=== PATIENT | female | born 1980 | race Caucasian/White ===

== ENCOUNTER 2020-02-02 17:19 | Emergency (ER) | payer OTHER, SELFPAY ==
[2020-02-02 17:36] VITALS: BP 125/97; PULSE 114; RESP 20; TEMP 37.5; O2SAT 100
--- NOTE | 2020-02-02 18:15 | ED.ABDPAIN ---
HPI - Abdominal Pain General Chief Complaint: Abdominal Pain Stated Complaint: abdominal pain Source: patient Mode of arrival: ambulatory Limitations: no limitations History of Present Illness HPI narrative: Patient presents for evaluation of abdominal pain and distention since last evening around 1999. She indicates she has a history of anxiety, bipolar disorder, inflammatory bowel disease(although she states she was never definitively diagnosed with Crohn's or ulcerative colitis). She underwent a partial colectomy in 2011 following a prolapsed rectum, and also underwent gastric sleeve surgery at [facility] in [place] in 2016. She is under the care of install technician, Dr. Pitts, but has not been evaluated by him in approximately 2 years. She is unsure of the date of her last colonoscopy. She states that last evening she was feeling nauseous but did not vomit. She indicates she has not been passing any gas, which is concerning. She states she feels like there is a tight band of nails around the abdomen circumferentially. She states her last bowel movement was yesterday and she has had daily bowel movements the last 2 weeks which is atypical for her. She typically has a bowel movement every 3 to 4 days. She denies any fever, chills, vaginal bleeding or discharge. She states she has undergone uterine ablation and essure placement in the past. . She reports high stress levels related to ongoing behavioral problems of her daughter and some stress in her marriage. Related Data Home Medications Medication Instructions Recorded Confirmed Linzess 02/02/20 Protonix 02/02/20 Trulance 02/02/20 diphenhydramine HCl [Unisom 50 mg PO HS 02/02/20 02/02/20 SleepGels] duloxetine 60 mg PO BID 02/02/20 02/02/20 gabapentin 1,200 mg PO HS 02/02/20 02/02/20 gabapentin 500 mg PO TID 02/02/20 02/02/20 lurasidone [Latuda] 100 mg PO DAILY 02/02/20 02/02/20 temazepam 15 mg PO HS 02/02/20 02/02/20 Allergies Allergy/AdvReac Type Severity Reaction Status Date / Time erythromycin base Allergy Vomiting Verified 02/02/20 18:04 Penicillins Allergy Rash Verified 02/02/20 18:04 Review of Systems Review of Systems: Narrative: CONSTITUTIONAL: Denies fever, chills, or sweats. EYES: Denies visual changes, redness, or discharge. ENT: Denies rhinorrhea, congestion, sore throat, or otalgia. CARDIOVASCULAR: Denies chest pain, palpitations, or edema. RESPIRATORY: Denies cough or dyspnea. GASTROINTESTINAL: Reports abdominal pain and recent nausea without vomiting. Reports inability to pass gas GENITOURINARY: Denies dysuria or hematuria. SKIN: Denies rash or itching. MUSCULOSKELETAL: Denies back pain, joint pain, or myalgia. NEUROLOGIC: Denies headache, numbness, dizziness, or weakness. PSYCHIATRIC: Denies anxiety or depression. [facility] Past Medical History Medical History (Updated 02/02/20 @ 18:29 by Brian Pedersen, ADMINISTRATION MANAGER, ) Anxiety Bipolar disorder Inflammatory bowel disease Insomnia Surgical History Surgical History H/O breast augmentation History of bariatric surgery History of partial colectomy Family History Family History (Updated 02/02/20 @ 18:24 by Brian Pedersen, [facility], ) Mother Medical history non-contributory Social History Social History Smoking status: Never smoker Alcohol intake: never Substance use: former Substance use type: marijuana Other substance usage details: Medical marijuana Living arrangements: with family Gender identity (if verbalized by the patient): Female Sexual Orientation (if Verbalized by the Patient): Straight or Heterosexual Exam Narrative: Exam Narrative: GENERAL: Well-appearing, well-nourished HEAD: Normocephalic, atraumatic. EYES: PERRLA and EOMI. ENT: Nares clear, no rhinorrhea or epistaxis. Mucous membranes moist. Oropharynx withou
== END 2020-02-02 18:20 | disposition short-term general hospital (02) ==
LOC: EXPTROY 17:30
PROVIDERS: Emergency Provider Nurse Practitioner; PCP Family Medicine
DX: R10.9 Unspecified abdominal pain (principal); F41.9 Anxiety disorder, unspecified; F31.9 Bipolar disorder, unspecified
CPT/HCPCS: 99202; G0463

== ENCOUNTER 2020-02-02 18:36 | Inpatient (IN) | payer OTHER, SELFPAY ==
--- NOTE | ~2020-02-02 | US_ITS ---
US right upper quadrant INDICATION: Cholecystitis. PROCEDURE: Realtime right upper abdominal ultrasound. COMPARISON: CT dated 02/02/2020 FINDINGS: The pancreas is normal without focal mass or pancreatic ductal dilation. Liver echotexture is normal without focal mass or intrahepatic biliary dilatation. There is normal directional flow i n the portal vein. Gallbladder is distended with stones, gallbladder wall thickening and pericholecystic fluid. There is mild intrahepatic biliary dilatation. Common bile duct measures 7 mm. Positive sonographic Redman' s sign. IMPRESSION: 1: Gallstones with gallbladder wall thickening and trace pericholecystic fluid. Positive sonographic Erdman's sign with mild intrahepatic biliary dilatation. Findings compatible with acute cholecystitis . Clinically correlate. Reviewed, dictated and finalized at location A. TICAL NURSE CLINICAL COORDINATOR IMPRESSION: 1: Gallstones with gallbladder wall thickening and trace pericholecystic fluid. Positive sonographic Redman's sign with mild intrahepatic biliary dilatation. Findings compatible with acute cholecystitis. Clinically correlate.
--- NOTE | ~2020-02-02 | CT_ITS ---
EXAMINATION: CT abdomen pelvis wo con DATE: 02/02/2020 19:33 INDICATION: Abdominal pain TECHNIQUE: Computed tomography (CT) of the abdomen and pelvis was performed without intravenous contr ast. The dose-length product (DLP) was 432.95 mGy-cm. Automated exposure control and iterative recons truction technique were employed. COMPARISON: None FINDINGS: The lung bases are clear. The heart size is normal. Bilateral breast implants are noted. Maher rgical changes in the stomach likely reflect gastric bypass. The liver, spleen, pancreas, and adrenal glands are normal. There is mild gallbladder distention with wall thickening and pericholecystic inf lammatory change. No pathologically enlarged abdominal or pelvic lymph nodes are identified. There is no free intraperitoneal gas or evidence of bowel obstruction. The appendix is normal. A large volume of colonic stool is present. There are tubal occlusion devices in the fallopian tubes. There is a fa t-containing umbilical hernia. Mild lumbar spondylosis is noted. IMPRESSION: 1. CT findings suggestive of acute cholecystitis. Reviewed, dictated and finalized at location A. TAL PRODUCT MANAGER
[2020-02-02 18:37] VITALS: BP 145/97; PULSE 100; RESP 20; TEMP 36.7; O2SAT 100
[2020-02-02 18:58] LABS: Basophils Absolute Auto 0.1 K/mm3 (0.0-0.1); Basophils Percent Auto 0.8 % (0.2-1.2); Eosinophils Absolute Auto 0.2 K/mm3 (0-0.3); Eosinophils Percent Auto 1.7 % (0-4.4); Hematocrit 41.3 % (37.0-47.0); Hemoglobin 13.3 g/dL (12.0-15.0); Immature Granulocyte Absolute 0.08 K/mm3 (0.00-0.031); Immature Granulocyte Percent A 0.6 % (0-0.5); Lymphocytes Absolute Auto 2.04 K/mm3 (0.9-3.2); Lymphocytes Percent Auto 14.2 % (18.3-44.2); Mean Corpuscular HGB Conc 32.2 g/dl (32-36); Mean Corpuscular Hemoglobin 31.1 pg (26-34); Mean Corpuscular Volume 96.7 fl (80-100); Mean Platelet Volume 10.1 fl (7.4-10.4); Monocytes Absolute Auto 0.8 K/mm3 (0.1-0.6); Monocytes Percent Auto 5.8 % (2.6-8.5); Neutrophils Absolute Auto 11.1 K/mm3 (1.3-6.7); Neutrophils Percent Auto 76.9 % (45.5-73.1); Platelet Count Result 240 k/mm3 (150-375); Red Blood Count 4.27 M/mm3 (4.2-5.4); Red Cell Distribution Width 13.4 % (11.5-14.5); White Blood Count 14.4 K/mm3 (4.5-10.0)
[2020-02-02 19:04] LABS: Add Urine Microscopic? YES; Appearance Urine Clear (Clear); Bacteria Urine Trace /hpf; Bilirubin Urine Negative (Negative); Blood Urine Negative (Negative); Color Urine Yellow (Yellow); Glucose Urine UA Negative (Negative); Ketones Urine Negative (Negative); Leukocyte Esterase Ur Trace LEU/UL (Negative); Mucus Urine Rare /lpf; Nitrate Urine Negative (Negative); Protein Urine 1+ mg/dL (Negative); RBC Urine 0-2 /hpf (0-2); Specific Grav Ur 1.017 (1.001-1.035); Squamous Epithelial Cell Urine Few /hpf (Few); Urobilinogen Urine Negative mg/dL (<2.0)
[2020-02-02 19:10] LABS: Alanine Aminotransferase 18 U/L (4-35); Albumin Level 4.1 g/dL (3.5-5.1); Alkaline Phosphatase 60 U/L (38-126); Anion Gap 8 mmol/L (8-16); Aspartate Amino Transferase 23 U/L (14-36); Bilirubin,Total 0.4 mg/dL (0.2-1.3); Blood Urea Nitrogen 11 mg/dL (7-17); Calcium 8.6 mg/dL (8.4-10.2); Carbon Dioxide 32 mmol/L (22-30); Chloride 97 mmol/L (98-107); Estimated CRCL calculation 89 ml/min; Estimated Glomerular Filt Rate > 60; Glucose 138 mg/dL (65-105); Lipase 85 U/L (23-300); Potassium 3.3 mmol/L (3.4-5.0); Sodium 137 mmol/L (137-145)
--- NOTE | 2020-02-02 19:17 | ED.ABDPAIN ---
HPI - Abdominal Pain General Chief Complaint: Abdominal Pain Stated Complaint: ABD PAIN Time Seen by Provider: 02/02/20 18:58 Source: patient Mode of arrival: ambulatory Limitations: no limitations History of Present Illness HPI narrative: 39-year-old female She has a history of a gastric sleeve procedure several years ago and had a what sounds like sigmoid resection several years before that for some type of rectal prolapse. In addition she is treated for irritable bowel with a couple different medications that she takes as needed Complains of waking up at about 2:00 in the morning with severe upper abdominal pain and abdominal distention and being pretty unconsolable until about 5 AM when it decreased enough for her to be able to go back to sleep However later on the morning the pain again worsened although she does not feel like she is as bloated anymore and she developed a fine erythematous rash on her trunk This prompted her to go to an urgent care where she was seen and they thought it would be a good idea to come here She is nauseated but has not vomited she has no diarrhea in fact she has not been able to pass a stool even after taking her Linzess which usually causes that she has no fever No hematuria or dysuria but reports decreased urine output Related Data Home Medications Medication Instructions Recorded Confirmed Linzess 1 caplet PO DAILY PRN 02/02/20 02/02/20 Protonix 40 mg PO BID 02/02/20 02/02/20 Trulance 200 mg PO Q12H 02/02/20 02/02/20 diphenhydramine HCl [Unisom 50 mg PO HS 02/02/20 02/02/20 SleepGels] duloxetine 60 mg PO BID 02/02/20 02/02/20 gabapentin 1,200 mg PO HS 02/02/20 02/02/20 gabapentin 600 mg PO TID 02/02/20 02/02/20 lurasidone [Latuda] 100 mg PO HS 02/02/20 02/02/20 temazepam 15 mg PO HS 02/02/20 02/02/20 Allergies Allergy/AdvReac Type Severity Reaction Status Date / Time erythromycin base Allergy Vomiting Verified 02/02/20 18:52 Penicillins Allergy Rash Verified 02/02/20 18:52 Review of Systems Review of Systems: All systems reviewed & are unremarkable except as noted in HPI and below Constitutional: Constitutional: Denies chills and Denies fever(s) Cardiovascular: Cardiovascular: Denies chest pain Respiratory: Respiratory: Denies cough and Denies dyspnea Gastrointestinal: Gastrointestinal: Reports no additional gastrointestinal complaints, Reports abdominal pain, Reports bloating, Reports constipation and Reports nausea Musculoskeletal: Musculoskeletal: Reports myalgias Integumentary/Breasts: Skin/Breast: Reports rash PMFSH Past Medical History Medical History (Updated 02/02/20 @ 23:11 by Te Casey MD) Anxiety Bipolar disorder Inflammatory bowel disease Insomnia Surgical History Surgical History H/O breast augmentation History of bariatric surgery History of partial colectomy Family History Family History (Updated 02/02/20 @ 21:41 by Lois Doyle RN) Mother Medical history non-contributory Father Acute myocardial infarction Hypertension Social History Social History Smoking status: Never smoker Alcohol intake: never Substance use: unknown Substance use type: marijuana Other substance usage details: Medical marijuana Gender identity (if verbalized by the patient): Female Spiritual care concerns: No Exam Const: General: alert Nutritional Appearance: well nourished Orientation/consciousness: patient oriented x3 Other: Anxious, tearful HENMT: Head: normal to inspection Eyes: Conjunctivae: conjunctivae normal EOM: EOMs intact bilaterally Chest: Other: Faint rash Resp: Effort & Inspection: normal respiratory effort Auscultation: clear to auscultation bilaterally Cardio: Rate: regular rate Rhythm: regular rhythm Heart sounds: no murmurs GI: GI Palp: Yes Tenderness to palpation present (G
[2020-02-02] MEDS: DICYCLOMINE HCL INJ 20 MG/2 ML VIAL IM (19:25)
[2020-02-02] MEDS: ONDANSETRON INJ 4 MG/2 ML VIAL IV PUSH (19:26)
[2020-02-02] MEDS: LACTATED RINGERS 1,000 ML 999 ML IV CONT (19:26)
[2020-02-02] MEDS: fentaNYL CITRATE INJ (*CRX) 100 MCG/2 ML VIAL 50 MCG IV PUSH ×2 (19:26→20:45)
[2020-02-02] MEDS: FAMOTIDINE 20 MG/2 ML VIAL IV PUSH (21:32)
[2020-02-02 21:39] VITALS: BP 141/87; PULSE 97; RESP 20; TEMP 36.7; O2SAT 100; BMI 25.2
--- NOTE | 2020-02-02 21:39 | ADMGEN ---
This patient, Sandra Ravi, was admitted to Medical Room 252-. Patient/family oriented to hospital policies and general routines including ID bracelet, bed and alarms, visiting hours, pain management, procedures, bathroom and other care routines, personal items, smoking policy, room service/diet, and visiting hours. Information on how to activate the Rapid Response Team has been discussed. Patient/Family are encouraged to report perceived risks to care and to ask questions if they do not understand what they are told or what they should do.
[2020-02-02] MEDS: metroNIDAZOLE 500 MG/ISO 100ML 500 MG/100 ML BAG 100 MG IVPB (22:01)
[2020-02-02] MEDS: LACTATED RINGERS 1,000 ML 125 ML IV CONT (22:01)
[2020-02-02] MEDS: HYDROmorphone HCL INJ (*CRX) 1 MG/ML SYR IV PUSH (22:33)
[2020-02-02] MEDS: lamoTRIgine 100 MG TABLET 200 MG PO (23:33)
[2020-02-02] MEDS: diphenhydrAMINE HCl CAP 25 MG CAPSULE 50 MG PO (23:34)
[2020-02-02] MEDS: GABAPENTIN 400 MG CAPSULE 1200 MG PO (23:35)
[2020-02-02] MEDS: PANTOPRAZOLE 40 MG TABLET PO (23:35)
[2020-02-03] VITALS (12 sets, daily range): BP systolic 103–131; BP diastolic 66–83; PULSE 91–118; RESP 12–20; TEMP 35.9–37.2; O2SAT 93–100
[2020-02-03] MEDS: HYDROmorphone HCL INJ (*CRX) 1 MG/ML SYR 0.5 MG IV PUSH (00:44)
[2020-02-03] MEDS: HYDROmorphone HCL INJ (*CRX) 1 MG/ML SYR IV PUSH ×6 (02:47→13:50)
[2020-02-03 05:43] LABS: Basophils Percent Auto 0.4 % (0.2-1.2); Eosinophils Absolute Auto 0.1 K/mm3 (0-0.3); Eosinophils Percent Auto 0.8 % (0-4.4); Hematocrit 38.1 % (37.0-47.0); Hemoglobin 12.2 g/dL (12.0-15.0); Immature Granulocyte Absolute 0.03 K/mm3 (0.00-0.031); Immature Granulocyte Percent A 0.3 % (0-0.5); Lymphocytes Absolute Auto 1.01 K/mm3 (0.9-3.2); Lymphocytes Percent Auto 11.4 % (18.3-44.2); Mean Corpuscular Hemoglobin 30.3 pg (26-34); Mean Corpuscular Volume 94.8 fl (80-100); Mean Platelet Volume 10.2 fl (7.4-10.4); Monocytes Absolute Auto 0.7 K/mm3 (0.1-0.6); Monocytes Percent Auto 8.3 % (2.6-8.5); Neutrophils Percent Auto 78.8 % (45.5-73.1); Platelet Count Result 200 k/mm3 (150-375); Red Blood Count 4.02 M/mm3 (4.2-5.4); Red Cell Distribution Width 13.2 % (11.5-14.5); White Blood Count 8.9 K/mm3 (4.5-10.0)
[2020-02-03 05:54] LABS: Lipase 56 U/L (23-300)
[2020-02-03] MEDS: metroNIDAZOLE 500 MG/ISO 100ML 500 MG/100 ML BAG 100 MG IVPB ×3 (06:05→20:46)
[2020-02-03] MEDS: LACTATED RINGERS 1,000 ML 125 ML IV CONT (06:06)
[2020-02-03] MEDS: GABAPENTIN 300 MG CAPSULE 600 MG PO ×2 (09:28→13:44)
[2020-02-03] MEDS: lamoTRIgine 100 MG TABLET 200 MG PO ×2 (09:28→20:49)
[2020-02-03] MEDS: DULoxetine HCL 60 MG CAPSULE.DR PO ×2 (09:28→20:46)
[2020-02-03] MEDS: PANTOPRAZOLE 40 MG TABLET PO ×2 (09:29→20:46)
[2020-02-03] MEDS: FAMOTIDINE 20 MG/2 ML VIAL IV PUSH ×2 (09:29→15:16)
[2020-02-03] MEDS: ONDANSETRON INJ 4 MG/2 ML VIAL IV PUSH ×2 (09:35→23:54)
--- NOTE | 2020-02-03 10:01 | PM.IMHP ---
H&P: HPI History of Present Illness Date/Time: 02/03/20 09:20 Chief complaint: acute cholecystitis Narrative: Sandra Ravi is a 39 year old female with a history of bipolar depression, anxiety, migraines, and reported inflammatory bowel disease. She presented to the emergency department yesterday with complaints of upper abdominal pain, bloating, and nausea. The patient reports a sudden onset of right-sided abdominal pain Monday night around 9:00 p.m.. She reportedly ate a homemade taco for dinner that night prior to the onset of pain. She reports the abdominal pain was sharp and intense. She also complains of associated bloating and nausea, but no vomiting. The pain continued through the night and improved slightly the next morning. The pain again worsened into Monday and started radiating around her upper abdomen and into her mid back. No alleviating factors. Denies fever or chills. She presented to [facility] urgent [facility] for the abdominal pain and was ultimately sent to the ER for further evaluation. CT scan of the abdomen and pelvis suggests acute cholecystitis. No cholelithiasis noted. Labs revealed white blood cell count 14,400, normal lipase, and normal LFTs. Our service was consulted by the ED physician and the patient was admitted to our service. She was started on IV broad-spectrum antibiotics, IV fluids, analgesics, and made NPO. The patient is now seen on the medical floor. She is still having a significant amount of abdominal pain requiring IV analgesics. She is rating her abdominal pain at a 10/10 in the right upper quadrant currently. Mild nausea, but still no vomiting. Still complaining of bloating. No other complaints at this time. Review of Systems Constitutional: Constitutional: Reports as per HPI, Denies chills, Denies excessive sweating, Denies fatigue, Denies fever(s), Denies headache(s) and Denies weakness Eyes: Eyes: Denies change in vision and Denies loss of vision ENT: Reports Normal hearing present, Denies dizziness and Denies headache(s) Cardiovascular: Cardiovascular: Denies chest pain, Denies syncope, Denies leg edema, Denies lightheadedness, Denies radiating jaw, neck or arm pain and Denies dyspnea Respiratory: Respiratory: Denies cough, Denies dyspnea and Denies wheezing Gastrointestinal: Gastrointestinal: Reports as per HPI, Reports abdominal pain, Denies melena, Reports bloating, Denies hematochezia, Denies change in stool character, Denies constipation, Denies GI cramping, Denies diarrhea, Reports nausea and Denies vomiting Genitourinary: Genitourinary: Reports no additional female genitourinary complaints, Denies nocturia, Denies dysuria and Denies urinary urgency Musculoskeletal: Musculoskeletal: Denies deformity, Denies joint swelling, Denies radiating pain into limb and Denies tingling Integumentary/Breasts: Skin/Breast: Denies pruritus, Denies wounds and Denies jaundice Neurologic: Reports Normal hearing present, Denies confusion, Denies dizziness, Denies syncope, Denies headache(s), Denies loss of vision, Denies tingling, Denies tremor(s) and Denies weakness Psychiatric: Psychiatric: Reports anxiety, Denies confusion, Reports depression, Denies homicidal ideation and Denies suicidal ideation Endocrine: Endocrine: Denies cold intolerance, Denies excessive sweating, Denies fatigue and Denies heat intolerance PMFSH Past Medical History Medical History Anxiety Bipolar disorder Inflammatory bowel disease Reported IBD but no confirmed diagnosis of Crohn's or UC. Insomnia Surgical History Surgical History H/O breast augmentation History of bariatric surgery Gastric sleeve History of partial colectomy Family History Family History Mother Medical history non-contributory Gallbladder disease Father Acute myocardial
--- NOTE | 2020-02-03 12:56 | PHAR ---
HOME MEDS VERIFIED = [facility] [id number] LURASIDONE 80 MG DAILY & [facility] [id number] LATUDA 20 MG 1 TAB DAILY.
[2020-02-03] MEDS: LACTATED RINGERS 1,000 ML 30 ML IV CONT ×2 (14:41→17:02)
--- NOTE | 2020-02-03 15:07 | WPDANESEPPF ---
Anes - Initial Pre Proc Eval Procedure: Operation Date: 02/03/20 15:30 Proposed Procedures p Laparoscopic Cholecystectomy - Nathan Hood DO Date/Time: 02/03/20 15:07 Surgeon: Nathan Hood DO Pre Op Diagnosis: acute cholecystitis Patient Data Age: 39 Gender: F Height: 1.7 m Weight: 73.2 kg Last Vital Signs Temp 37.1 C 02/03/20 14:30 Pulse 107 H 02/03/20 14:30 Resp 14 02/03/20 14:30 BP 122/80 02/03/20 14:30 Pulse Ox 94 02/03/20 14:30 Allergies Allergy/AdvReac Type Severity Reaction Status Date / Time erythromycin base Allergy Vomiting Verified 02/02/20 18:52 Penicillins Allergy Rash Verified 02/02/20 18:52 Home Medications Medication Instructions Recorded Confirmed Type Linzess 1 caplet PO DAILY PRN 02/02/20 02/02/20 History Protonix 40 mg PO BID 02/02/20 02/02/20 History Trulance 200 mg PO Q12H 02/02/20 02/02/20 History diphenhydramine HCl [Unisom 50 mg PO HS 02/02/20 02/02/20 History SleepGels] duloxetine 60 mg PO BID 02/02/20 02/02/20 History gabapentin 1,200 mg PO HS 02/02/20 02/02/20 History gabapentin 600 mg PO TID 02/02/20 02/02/20 History lurasidone [Latuda] 100 mg PO HS 02/02/20 02/02/20 History temazepam 15 mg PO HS 02/02/20 02/02/20 History Laboratory Tests 02/02/20 02/02/20 02/02/20 18:52 18:52 18:52 WBC 14.4 K/mm3 H K/mm3 (4.5-10.0) RBC 4.27 M/mm3 M/mm3 (4.2-5.4) Hgb 13.3 g/dL g/dL (12.0-15.0) Hct 41.3 % % (37.0-47.0) MCV 96.7 fl fl (80-100) MCH 31.1 pg pg (26-34) MCHC 32.2 g/dl g/dl (32-36) RDW 13.4 % % (11.5-14.5) Plt Count 240 k/mm3 k/mm3 (150-375) MPV 10.1 fl fl (7.4-10.4) Immature Gran % (Auto) 0.6 % H % (0-0.5) Neut % (Auto) 76.9 % H % (45.5-73.1) Lymph % (Auto) 14.2 % L % (18.3-44.2) [place] % (Auto) 5.8 % % (2.6-8.5) Eos % (Auto) 1.7 % % (0-4.4) Baso % (Auto) 0.8 % % (0.2-1.2) Lymph # (Auto) 2.04 K/mm3 K/mm3 (0.9-3.2) [place] # (Auto) 0.8 K/mm3 H K/mm3 (0.1-0.6) Eos # (Auto) 0.2 K/mm3 K/mm3 (0-0.3) Baso # (Auto) 0.1 K/mm3 K/mm3 (0.0-0.1) Abs Immat Gran (auto) 0.08 K/mm3 H K/mm3 (0.00-0.031) Absolute Neuts (auto) 11.1 K/mm3 H K/mm3 (1.3-6.7) Absolute Nucleated RBC 0.0 K/mm3 K/mm3 (0.0-0.012) Nucleated RBC % 0.0 % % (0.0-0.2) Sodium 137 mmol/L mmol/L (137-145) Potassium 3.3 mmol/L L mmol/L (3.4-5.0) Chloride 97 mmol/L L mmol/L (98-107) Carbon Dioxide 32 mmol/L H mmol/L (22-30) Anion Gap 8 mmol/L mmol/L (8-16) BUN 11 mg/dL mg/dL (7-17) Creatinine 0.70 mg/dL mg/dL (0.7-1.0) Estim Creat Clear Calc 89 ml/min ml/min Estimated GFR > 60 (59 - ) Glucose 138 mg/dL H mg/dL (65-105) Calcium 8.6 mg/dL mg/dL (8.4-10.2) Total Bilirubin 0.4 mg/dL mg/dL (0.2-1.3) AST 23 U/L U/L (14-36) ALT 18 U/L U/L (4-35) Alkaline Phosphatase 60 U/L U/L (38-126) Total Protein 7.0 g/dL g/dL (6.3-8.2) Albumin 4.1 g/dL g/dL (3.5-5.1) Lipase 85 U/L U/L (23-300) Urine Color Yellow (Yellow) Urine Appearance Clear (Clear) Urine pH 6.0 (5.0-9.0) Ur Specific [place] 1.017 (1.001-1.035) Urine Protein 1+ mg/dL H mg/dL (Negative) Urine Glucose (UA) Negative mg/dL mg/dL (Negative) Urine Ketones Negative mg/dL mg/dL (Negative) Ur Blood (Man) Negative (Negative) Urine Nitrate Negative (Negative) Urine Bilirubin Negative (Negative) Urine Urobilinogen Negative mg/dL mg/dL (<2.0) Leukocyte Esterase Rfl Trace FELIX/UL H FELIX/UL (Negative) Urine RBC 0-2 /hpf /h
[2020-02-03] MEDS: SCOPOLAMINE 1.5 MG PATCH TRANSDERM (15:15)
[2020-02-03] MEDS: BUPIVACAINE/EPINEPHRINE 0.25% 10 ML VIAL 30 ML INFILTRATE (16:14)
[2020-02-03] MEDS: HEMOSTATIC MATRIX (SURGIFLO with THROMBIN) KIT 1 KIT XX (16:48)
--- NOTE | 2020-02-03 17:06 | PM.PROC ---
Procedure Note - Detailed Date of procedure: 02/03/20 Pre-op diagnosis: acute cholecystitis Post-op diagnosis: same (Acute gangrenous cholecystitis) Procedure performed: Laparoscopic Cholecystectomy Description of procedure: Procedure as well as risks, benefits, and alternatives were discussed with patient. Written consent was obtained and placed in chart prior to procedure. The patient was brought back to surgical suite. Patient was placed in supine position on operating table. Time-out was done to confirm patient and procedure. Patient was then intubated by the anesthesia department. Abdomen was prepped and draped in sterile fashion using chlorhexidine prep. 0.5% bupivacaine with epinephrine was infiltrated at each site of incision. An 11 millimeter vertical incision was made at the inferior portion of the umbilicus using a 15 blade scalpel. Blunt dissection was carried down to the linea alba. The linea alba was then incised using a 15 blade scalpel. The peritoneum was then bluntly entered. An 11 millimeter trocar was inserted and cabon dioxied insuflation was used to create a pneumoperitoneum. The camera was inserted and the abdomen was inspected. The patient was placed in reverse Trendelenberg position and rotated slightly to the left. A 5 millimeter incision was made in the epigastric region, and a 5 millimeter trocar was inserted under direct visualization. Two 5 millimeter incisions were made in the right upper quadrant, and two 5 millimeter trocars were inserted under direct visualization. The gallbladder was identified and grasped at the fundus and retracted superiorly. It was then grasped at the infundibulum retracted laterally. Careful dissection around the neck of the gallbladder was performed using blunt dissection with a [place] grasper and hook electrocautery. The cystic duct was identified, and a window was created behind it. The cystic artery was also identified and a window was created behind it. The critical view of safety was identified, visualizing the cystic duct running directly into the neck of the gallbladder, and the cystic artery running directly into the wall of the gallbladder. A 5 millimeter clip fibreglass gun hand was then used to place 2 clips proximally and 1 clip distally on both the cystic duct and cystic artery. They were then both transected using endoscopic scissors. Once safely away from the danny hepatitis, the gallbladder was dissected free from the liver bed using hook electrocautery. Hemostasis was achieved along the way. The gallbladder was removed completely and then removed through the umbilical port. The liver bed was then inspected. Hemostasis appeared adequate, and our clips appeared secure. The area was gently irrigated with sterile saline. No other abnormalities were seen. The patient was flattened out in bed, and 1 final inspection was made around the abdominal cavity. The ports were then removed under direct visualization, the camera was removed, and the pneumoperitoneum was released. The fascia of the umbilical incision was approximated using an 0 Vicryl [id number] suture. The skin of the incisions was approximated using 4-0 Monocryl subcuticular sutures. Exofin glue was applied on top. The patient was then awakened from anesthesia, extubated, and transferred to recovery. Anesthesia: GETA and local (0.5% bupivicaine with epinephrine) Surgeon: Nathan Hood DO Estimated blood loss (mL): 50 Drains: Yes (19 round Maciel) Pathology: yes (Gallbladder) Complications: No immediate complications Condition: stable Disposition: floor Findings: This is a 39-year-old woman who presented to the emergency department last night with complaints of right upper quadrant abdominal pain for the past 3 days. Her symptoms continued to progress and her pain was 10/10. She had never experienced symptoms like this in the past. CT in the emergency department showed evidence of acute cholecystitis with a thicken
--- NOTE | 2020-02-03 18:36 | PC.NURSE ---
arrived to rm 222 from recovery at approx. 1820 via bed. no distress noted per visual assessment, please see nursing assessment. vital signs wnl.
--- NOTE | 2020-02-03 18:51 | PC.NURSE ---
1415 Report given to surgery, SBAR sent. Pt stable and signed consent for surgery & blood transfusion.
[2020-02-03] MEDS: diphenhydrAMINE HCl CAP 25 MG CAPSULE 50 MG PO (20:47)
[2020-02-03] MEDS: GABAPENTIN 400 MG CAPSULE 1200 MG PO (20:49)
[2020-02-04] MEDS: metroNIDAZOLE 500 MG/ISO 100ML 500 MG/100 ML BAG 100 MG IVPB ×3 (01:02→11:58)
[2020-02-04] MEDS: IBUPROFEN 600 MG TABLET PO (02:03)
[2020-02-04 03:45] VITALS: BP 98/57; PULSE 101; RESP 20; TEMP 36.8; O2SAT 96
[2020-02-04 05:22] LABS: Hematocrit 32.7 % (37.0-47.0); Hemoglobin 10.6 g/dL (12.0-15.0); Mean Corpuscular HGB Conc 32.4 g/dl (32-36); Mean Corpuscular Hemoglobin 30.5 pg (26-34); Mean Platelet Volume 10.2 fl (7.4-10.4); Platelet Count Result 179 k/mm3 (150-375); Red Blood Count 3.48 M/mm3 (4.2-5.4); Red Cell Distribution Width 13.4 % (11.5-14.5); White Blood Count 11.6 K/mm3 (4.5-10.0)
[2020-02-04 05:55] LABS: Alanine Aminotransferase 260 U/L (4-35); Albumin Level 2.8 g/dL (3.5-5.1); Alkaline Phosphatase 85 U/L (38-126); Anion Gap 3 mmol/L (8-16); Aspartate Amino Transferase 169 U/L (14-36); Bilirubin,Total 0.9 mg/dL (0.2-1.3); Blood Urea Nitrogen 8 mg/dL (7-17); Calcium 8.2 mg/dL (8.4-10.2); Carbon Dioxide 31 mmol/L (22-30); Chloride 103 mmol/L (98-107); Estimated CRCL calculation 89 ml/min; Estimated Glomerular Filt Rate > 60; Glucose 94 mg/dL (65-105); Potassium 3.6 mmol/L (3.4-5.0); Sodium 137 mmol/L (137-145)
[2020-02-04 07:45] VITALS: BP 111/74; PULSE 92; RESP 20; TEMP 36.4; O2SAT 99
[2020-02-04] MEDS: GABAPENTIN 300 MG CAPSULE 600 MG PO ×2 (08:31→12:01)
[2020-02-04] MEDS: DULoxetine HCL 60 MG CAPSULE.DR PO (08:35)
[2020-02-04] MEDS: lamoTRIgine 100 MG TABLET 200 MG PO (08:35)
[2020-02-04] MEDS: PANTOPRAZOLE 40 MG TABLET PO (08:36)
[2020-02-04 11:45] VITALS: BP 108/68; PULSE 91; RESP 20; TEMP 36.6; O2SAT 100
--- NOTE | 2020-02-04 12:00 | PM.DS ---
DS: Admitting Diagnosis Admitting Diagnosis Admitting Diagnosis: Acute cholecystitis DS: Discharge Diagnosis Discharge Diagnosis (1) Acute gangrenous cholecystitis: Code(s): K81.0 - Acute cholecystitis Status: Acute DS: Summary Hospital Course Reason for hospitalization: acute cholecystitis Hospital Course: this is a 39-year-old woman who presented to the emergency department on 02/02/2020 with complaints of upper abdominal pain for the past 2-3 days. Pain was becoming more severe. She had had a couple small episodes in the past but none this severe. Lab work in the ED showed evidence of an elevated white blood count but normal liver enzymes. CT showed evidence of acute cholecystitis. She was started on broad-spectrum IV antibiotics and was admitted to the hospital. She then underwent laparoscopic cholecystectomy on 02/03/2020. The gallbladder appeared gangrenous but otherwise surgery was uncomplicated. I did choose to place a 19 round Maciel drain at the time of surgery to monitor for ongoing infection or other problems. On postop day 1 she was doing well and her diet was able to be advanced to a low-fat diet. There was minimal drainage in the ANA drain. She was remaining afebrile and pain was adequately controlled. She was discharged on postop day 1 after the drain was removed. Status at Discharge Functional status at discharge: independent ambulation Overall status at discharge: patient is progressing back to baseline Time Spent with Patient Time attestation: Total time spent providing and/or coordinating discharge services: Time spent: Less than 30 minutes Exam GI: Inspection: normal to inspection and other ( ANA with minimal serosanguineous output) GI Palp: Yes Tenderness to palpation present (GI) ( Appropriate incisional) DS: Data Data Completed and Pending Completed studies during hospitalization: Pending at discharge 02/03/20 16:07 Surgical [PTH] Routine Discharge Plan Discharge Attending physician on discharge: Nathan Causey Consulting providers: Kerry Youngblood ; Erickson Macedo ; Steven Tovar Discharging Clinician: Nathan Causey Anticipated Discharge Date/Time: 02/04/20 11:26 Patient Disposition: Home, Self-Care Activity: other - see discharge instructions Diet: other - see discharge instructions Wound Care Instructions: other - see discharge instructions Discharge Instructions: Remove the Scopolamine patch that was placed behind your ear in 72 hours or less. Wash your hands after touching. DISCHARGE INSTRUCTION SHEET FOR HERNIA, GALLBLADDER AND APPENDIX SURGERIES DR. CAUSEY PATIENT TO TAKE HOME 1. May shower in 24 hours, no soaking in bath x 2weeks. 2. Call office for: Wound increasingly painful or bleeding Vomiting Fever of greater than 101 degrees 3. If no bowel movement for three days, take 1 oz. (30 ml) Milk of Magnesia or MiraLax 17g 1 to 2 times daily. 4. No heavy lifting > 10-15 pounds x weeks for hernia repairs and 2 weeks for laparoscopic cholecystectomy or appendectomy. 5. No driving for 3 days or while taking narcotic pain medications. 6. Ice to surgical site for 48 hours (30 min on, then 30 min off). 7. Up walking 10-30 minutes three times per day. 8. Resume previous home medications. 9. Follow-up 10-14 days in office for wound check or as previously scheduled. ([id number]) 10. Oral pain medications prescription to be sent to pharmacy. Take Tylenol 500mg every 6 hours and Ibuprofen 600mg every 6 hours for the first 2 days, then as needed. 11. NUTRITION: Start out by drinking fluids and increase your diet as tolerated. If you experience nausea, try dry toast, crackers, and 7-UP. If nausea or vomiting persists, contact your surgeon?s office. 12. Gallbladders-Low Fat Diet for 2 weeks (send care note of low fat diet) 13. Inguinal Hernias-wear s
--- NOTE | 2020-02-04 12:17 | PC.NURSE ---
Rt lower quadrant ANA drain removed per MD order Drain removed after suture removal intact. 25 cc drained. Puncture site clean without redness or swelling. Covered puncture site with 4 x [address] Hood told her she could shower at home tomorrow.
== END 2020-02-04 13:28 | disposition home or self-care (01) | DRG 419 ==
LOC: ANHED 20:11 → ANH2MED 21:02 → ANHTRC 02-03 18:16
PROVIDERS: Admitting Provider Surgery; Emergency Provider Emergency Medicine; PCP Family Medicine; Visit Provider Surgery
PROC: 0FT44ZZ Resection of Gallbladder, Percutaneous Endoscopic Approach (ICD-10-PCS; CPT 47562; principal; 2020-02-03 15:30)
DX: K81.0 Acute cholecystitis (principal); K82.A1 Gangrene of gallbladder in cholecystitis; F31.9 Bipolar disorder, unspecified; F41.9 Anxiety disorder, unspecified; G47.00 Insomnia, unspecified; K52.9 Noninfective gastroenteritis and colitis, unspecified; Z79.899 Other long term (current) drug therapy; Z88.0 Allergy status to penicillin; Z88.1 Allergy status to other antibiotic agents; Z90.49 Acquired absence of other specified parts of digestive tract; Z98.84 Bariatric surgery status
CPT/HCPCS: 36415; 74176; 76705; 80053; 81001; 81025; 83690; 85025; 85027; 87077; 87086; 87088; 87186; 88304; 96361; 96372; 96374; 96375; 99285; A9270; J0131; J0500; J1100; J1170; J1956; J2250; J2370; J2405; J2704; J2710; J3010; J7030; J7120

== ENCOUNTER 2020-02-28 11:07 | Outpatient (CLI) | payer OTHER, SELFPAY ==
[2020-02-28 11:48] LABS: Basophils Absolute Auto 0.1 K/mm3 (0.0-0.1); Basophils Percent Auto 1.8 % (0.2-1.2); Eosinophils Absolute Auto 0.4 K/mm3 (0-0.3); Eosinophils Percent Auto 7.2 % (0-4.4); Hematocrit 42.3 % (37.0-47.0); Hemoglobin 13.4 g/dL (12.0-15.0); Immature Granulocyte Absolute 0.01 K/mm3 (0.00-0.031); Immature Granulocyte Percent A 0.2 % (0-0.5); Lymphocytes Absolute Auto 2.42 K/mm3 (0.9-3.2); Lymphocytes Percent Auto 43.4 % (18.3-44.2); Mean Corpuscular HGB Conc 31.7 g/dl (32-36); Mean Corpuscular Hemoglobin 29.9 pg (26-34); Mean Corpuscular Volume 94.4 fl (80-100); Mean Platelet Volume 10.9 fl (7.4-10.4); Monocytes Absolute Auto 0.5 K/mm3 (0.1-0.6); Monocytes Percent Auto 8.4 % (2.6-8.5); Neutrophils Absolute Auto 2.2 K/mm3 (1.3-6.7); Platelet Count Result 223 k/mm3 (150-375); Red Blood Count 4.48 M/mm3 (4.2-5.4); Red Cell Distribution Width 13.2 % (11.5-14.5); White Blood Count 5.6 K/mm3 (4.5-10.0)
[2020-02-28 11:57] LABS: Alanine Aminotransferase 22 U/L (4-35); Albumin Level 4.6 g/dL (3.5-5.1); Alkaline Phosphatase 64 U/L (38-126); Aspartate Amino Transferase 29 U/L (14-36); Bilirubin,Total 0.3 mg/dL (0.2-1.3)
== END 2020-02-28 11:08 | disposition home or self-care (01) ==
LOC: ANHLAB 11:09
PROVIDERS: PCP Family Medicine; Visit Provider Surgery
DX: K81.0 Acute cholecystitis (principal)
CPT/HCPCS: 36415; 80076; 85025